=== PATIENT | male | born 1955 | race Caucasian/White ===

== ENCOUNTER 2018-10-24 21:36 | Emergency (ER) | payer OTHER ==
[~2018-10-24 21:36] MED LIST: ISOVUE-370 76%-LOCM 1 ML ONE
[2018-10-24 22:12] LABS: #Basophils 0.1 thou/uL (0.0-0.2); #Eosinphils 0.3 thou/uL (0.0-0.7); #Lymphocytes 2.6 thou/uL (1.20-3.40); #Neutrophils 8.2 thou/uL (1.40-6.50); %Basophils 0.6 % (0.0-1.0); %Eosinophils 2.7 % (0.0-10.0); %Monocytes 8.2 % (0.0-10.0); %Neutrophils 67.5 % (42.0-75.0); Hemoglobin 15.8 g/dL (14.0-18.0); Mean Corpuscular HGB CONC 33.6 g/dL (32.0-36.0); Mean Corpuscular Hemoglobin 31.4 pg (27.0-31.0); Mean Corpuscular Volume 93.5 fL (78.0-98.0); Mean Platelet Volume 7.9 fL (7.4-10.4); Platelet Count 237 thou/uL (130-400); RBC Distribution Width 13.3 % (11.5-14.5); Red Blood Cell (RBC) Count 5.02 mill/uL (4.70-6.10); White Blood Cell (WBC) Count 12.2 thou/uL (4.8-10.8)
[2018-10-24 22:22] LABS: Bilirubin Negative (Negative); Blood, Urine Negative (Negative); Clarity CLEAR (Clear); Glucose, Urine (Dipstick) Negative (Negative); Leukocyte Negative (Negative); Nitrite Negative (Negative); Protein, Urine (Dipstick) Negative (Neg-Trace); Specific Gravity, Urine 1.002 (1.002-1.036); Urobilinogen 0.2 mg/dL (0.2-1.0)
[2018-10-24 22:23] LABS: Bacteria/HPF None Seen HPF (None Seen); Hyaline Casts/LPF 0-3 HYALINE CAST LPF (0-3 Hyaline); RBC/HPF None Seen HPF (0-3); Squamous Epithelial None Seen HPF (0-3); WBC/HPF None Seen HPF (0-3)
[2018-10-24 22:33] LABS: ALT (SGPT) 41 U/L (8-55); AST (SGOT) 27 U/L (5-34); Albumin 3.8 g/dL (3.4-4.8); Alkaline Phosphatase 95 U/L (40-150); Anion Gap 11 mmol/L (10-20); BUN (Urea Nitrogen) 11 mg/dL (8.4-25.7); Bilirubin, Total 0.8 mg/dL (0.2-1.2); Calc. Creatinine Clearance 0 mL/min (70-130); Calcium 9.5 mg/dL (7.8-10.44); Carbon Dioxide 28 mmol/L (23-31); Chloride 103 mmol/L (98-107); Estimated GFR-MDRD 85; Globulin 3.5 g/dL (2.4-3.5); Glucose 208 mg/dL (80-115); Lipase 42 U/L (8-78); Potassium 3.8 mmol/L (3.5-5.1); Protein, Total 7.3 g/dL (5.8-8.1); Sodium 138 mmol/L (136-145)
--- NOTE | 2018-10-24 22:40 | RAD ---
AP CHEST: 10/24/18 HISTORY: Chest pain. No comparison. FINDINGS/IMPRESSION: Mild cardiomegaly with postop sternotomy change. Atelectasis and/or infiltrative changes in the lung bases. Mild vascular engorgement. Small effusions not excluded. POS: [facility]
[2018-10-24] MEDS ORDERED: Nitroglycerin 2% Ointment 1 INCH/1 GM Packet ONE (22:52)
[2018-10-24 22:55] LABS: CKMB 2.8 ng/mL (0-6.6)
--- NOTE | 2018-10-24 23:09 | CT ---
CTA CHEST WITH CONTRAST: 10/24/18 Multiple axial tomograms were obtained through the chest following an angio protocol and multiplanar reconstruction and 3D postprocessing. INDICATIONS: Chest pain. FINDINGS: Pulmonary arteries show adequate enhancement. No evidence of pulmonary embolus identified. Thoracic aorta shows atherosclerotic change. No dissection or aneurysm. Small bilateral pleural effusions. Bibasilar atelectasis and/or infiltrates, more prominent in the le ft lung base. Hazy alveolar opacity in the left lung base suggests inflammatory infiltrate. Cardiomegaly with vascular congestion. No evidence of mediastinal adenopathy. Images through upper ab domen unremarkable. IMPRESSION: 1. No evidence of pulmonary embolus. 2. Small bilateral pleural effusions. 3. Evidence of patchy infiltrate in the left lung base. 4. Cardiomegaly and mild vascular congestion. POS: [facility]
[2018-10-24] MEDS ORDERED: Sodium Chloride 0.9% 100 ML ONE (23:20)
[2018-10-24] MEDS ORDERED: cefTRIAXone\\ROCEPHIN 2 GM VIAL ONE (23:20)
[2018-10-24] MEDS ORDERED: Furosemide 40 MG/4 ML VIAL ONE (23:53)
[2018-10-24] MEDS ORDERED: Clindamycin/D5W 900 mg/50 ml Premix Bag ONE (23:53)
[2018-10-24] MEDS ORDERED: Azithromycin 500 MG VIAL ONE (23:55)
== END 2018-10-25 01:11 | disposition short-term general hospital (02) ==
LOC: ERS 21:36 → EEVIPCON 21:36 → ERS 10-25 01:11
DX: J18.9 Pneumonia, unspecified organism (principal); E03.9 Hypothyroidism, unspecified; E78.5 Hyperlipidemia, unspecified; I10 Essential (primary) hypertension; Z79.899 Other long term (current) drug therapy; Z79.82 Long term (current) use of aspirin
CPT/HCPCS: 36415; 71045; 71275; 80053; 81003; 82553; 83690; 83880; 84484; 85025; 85379; 93005; 96365; 96367; 96375; J0456; J0696; J1940; J3490; J7050; Q9966